=== PATIENT | female | born 1985 | race Caucasian/White ===

== ENCOUNTER 2017-04-02 22:16 | Emergency (ER) | payer SELFPAY ==
[~2017-04-02] VITALS: Ht 167.6 cm; Wt 68.0 kg
[2017-04-02] MEDS ORDERED: HYDROCODONE (22:36)
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
--- NOTE | 2017-04-02 23:47 | NUR ---
Pt given d/c instructions, verbalized understanding.
--- NOTE | 2017-04-03 01:07 | NUR ---
Melody zhao in [place] - 04/03/17 at 0108 by GLORIA pt given d/c instructions, verbalized understanding.
== END 2017-04-02 23:48 | disposition home or self-care (01) ==
LOC: ER 22:18
DX: F07.81 Postconcussional syndrome (principal); R42 Dizziness and giddiness
CPT/HCPCS: 70450; 99284; A4663

== ENCOUNTER 2017-04-04 11:28 | Emergency (ER) | payer SELFPAY ==
[~2017-04-04] VITALS: Ht 167.6 cm; Wt 68.0 kg
[~2017-04-04 11:28] MED LIST: HYDROCODONE
--- NOTE | 2017-04-04 11:45 | NUR ---
DR SEQUEIRA AT THE BEDSIDE FOR EVAL AND EXAM.
[2017-04-04] MEDS ORDERED: ACETAMINOPHEN 325 MG TABLET PO ONE (12:00)
[2017-04-04] MEDS ORDERED: IBUPROFEN 200 MG TABLET PO ONE (12:00)
--- NOTE | 2017-04-04 12:01 | NUR ---
PT SIGNED CONSENT FOR TEST WAIVER, PLACED IN THE CHART.
[2017-04-04] MEDS ORDERED: ACETAMINOPHEN ES 500 MG TABLET ONE (12:10)
[2017-04-04] MEDS ORDERED: IBUPROFEN 600 MG TABLET ONE (12:10)
--- NOTE | 2017-04-04 12:33 | NUR ---
Patient discharged to home in stable conditon. Written and verbal after care instructions given. Patient verbalizes understanding of instructions. PT LEFT ER W/ STEADY GAIT ACCOMAPINED BY FAMILY.
[2017-04-04 12:34] VITALS: BP 112/78
== END 2017-04-04 12:36 | disposition home or self-care (01) ==
LOC: ER 11:28
DX: S20.219A Contusion of unspecified front wall of thorax, initial encounter (principal); Z88.6 Allergy status to analgesic agent; V89.2XXA Person injured in unspecified motor-vehicle accident, traffic, initial encounter; Y93.89 Activity, other specified; Y99.8 Other external cause status; Y92.89 Other specified places as the place of occurrence of the external cause
CPT/HCPCS: 71010; 99283; A4663